=== PATIENT | male | born 1975 | race Caucasian/White ===

== ENCOUNTER 2020-07-07 10:52 | Emergency (ER) | payer MEDICAID ==
[~2020-07-07] VITALS: Ht 175.3 cm; Wt 83.7 kg
[2020-07-07] MEDS ORDERED: LIDOCAINE-MPF 1%, 5ML ONE (11:09)
[2020-07-07] MEDS ORDERED: DIPH,PERTUSS(ACELL),TET VAC/PF 0.5 ML IM-VACC ONE ×2 (12:03→12:30)
[2020-07-07] MEDS ORDERED: NEOSPORIN OINT. PKT 1 PACKET ONE (13:26)
[2020-07-07] MEDS ORDERED: CEFAZOLIN 1,000 MG IM ONE (14:00)
[2020-07-07] MEDS ORDERED: CEFAZOLIN 1,000 MG ONE (14:13)
[2020-07-07 14:21] VITALS: BP 112/74
== END 2020-07-07 14:23 | disposition home or self-care (01) ==
LOC: ED 11:43
DX: S61.215A Laceration without foreign body of left ring finger without damage to nail, initial encounter (principal); I10 Essential (primary) hypertension; W31.2XXA Contact with powered woodworking and forming machines, initial encounter; Y93.H3 Activity, building and construction; Y92.098 Other place in other non-institutional residence as the place of occurrence of the external cause; Y99.8 Other external cause status
CPT/HCPCS: 11730; 36415; 73130; 86705; 86706; 86803; 87340; 87521; 87806; 90471; 90715; 96372; 96374; 99284; J0690; G0475